=== PATIENT | female | born 1980 | race Two or more races ===

== ENCOUNTER 2016-10-13 22:20 | Inpatient (IN) | payer OTHER ==
[~2016-10-13] VITALS: Ht 167.6 cm; Wt 80.7 kg
[2016-10-13] MEDS ORDERED: OXYTOCIN in NORMAL SALINE PREMIX 30 UNIT/500 ML BAG. IV ONE (22:24)
[2016-10-13] MEDS ORDERED: IV RINGERS,LACTATED 1000ML 1,000 ML IV SCH (22:43)
[2016-10-13] MEDS ORDERED: 0.9 % SODIUM CHLORIDE 10 ML DISP.SYRIN. IV PRN ×2 (22:45→23:15)
[2016-10-13] MEDS ORDERED: TERBUTALINE 1 MG/ML VIAL. SQ PRN (22:45)
[2016-10-13] MEDS ORDERED: LIDOCAINE 1% PF 30 ML VIAL. INJ PRN (22:45)
[2016-10-13] MEDS ORDERED: OXYTOCIN 30 UNIT/500 ML PREMIX 500 ML IV PRN ×2 (22:45→23:15)
--- NOTE | 2016-10-13 23:05 | PDOC1 ---
OB - History Hx of Present Care: Good Care Ultrasounds: Normal mid trimester US Obstetrical Complications: None Medical Complications: None Past Family/Social History * Past Medical, Surgical, Family and Obstetric Histories reviewed from chart. Blood Type: Unknown Rubella: Unknown RPR/VDRL: Unknown GBS Status: Unknown HBsAG: Unknown OB - Chief Complaint & HPI Date of Admission: Date of Admission: Oct 13, 2016 at 22:20 Chief Complaint/History : 2 Para: 1 EGA: 38 Reason for admission: active labor Admission Nurse Assessment Rev: Yes Problems: OB - Admission Exam Physical Exam HEENT: Normal Heart: Regular Rate Lungs: Clear Abdomen: Gravid, Non tender, Soft Extremities: Edema Reflexes: Normal Cervical Dilatation: 10cm Effacement: 100% Station: Other (precipitous delivery in elevator) Membranes: Ruptured Amniotic Fluid: Clear Heart Rate: Normal Accelerations: Accelerations Present Decelerations: No decelerations Contractions on Admission: < 5 Minutes Apart Intensity: Firm Text A: 38 wks IUP Active labor: Delivered precipitously in elevator P: Admit for completion of 3rd stage of labor and post care. PAMELA ROPER Jr, MD Oct 13, 2016 23:05
--- NOTE | 2016-10-13 23:07 | PDOC ---
VAGINAL DELIVERY DATE DATE: 10/13/16 TIME: 23:04 : 2 Para: 2 EGA: 38 VAGINAL DELIVERY: VTX VACCUM ASSISTED: No PLACENTA: Spontaneous 9/9 SEX: Female WEIGHT Weight [3310 gm ] Nuchal Cord: No Amniotic Fluid: Clear PAIN: Natural EPISIOTOMY: No EXTENSION: Yes (Left labial; hemostatic) REPAIRED WITH none EBL 300 ml COMPLICATIONS none CONDITION pt. stable Signs of Intrauterine Infectio: None Shoulder Dystocia: No DIAGNOSIS precipitous delivery. completion of 3rd stage of labor. Problems: PAMELA ROPER Jr, MD Oct 13, 2016 23:07
[2016-10-13] MEDS: FENTANYL PF 100 MCG/2 ML VIAL. IV PRN ×2 (23:11→23:39)
[2016-10-13] MEDS ORDERED: BENZOCAINE 20% TOPICAL AEROSOL SPRAY 57GM CAN. TP PRN (23:15)
[2016-10-13] MEDS ORDERED: PHENYLEPH/MINERAL OIL/PETROLAT RECTAL OINTMENT 28GM TUBE. RC PRN (23:15)
[2016-10-13] MEDS ORDERED: OXYCODONE/APAP 5/325 TABLET. PO PRN (23:15)
[2016-10-13] MEDS ORDERED: IBUPROFEN 800 MG TABLET. PO PRN (23:15)
[2016-10-13] MEDS ORDERED: ACETAMINOPHEN 325 MG TABLET. PO PRN (23:15)
[2016-10-13] MEDS ORDERED: DOCUSATE SODIUM 100 MG CAPSULE PO PRN (23:15)
[2016-10-13] MEDS ORDERED: ZOLPIDEM 5 MG TABLET. PO PRN (23:15)
[2016-10-13] MEDS ORDERED: MAG HYDROX/AL HYDROX/SIMETH 30 ML ORAL.SUSP PO PRN (23:15)
[2016-10-13] MEDS ORDERED: DIPHENHYDRAMINE HCL 25 MG CAPSULE PO PRN (23:15)
[2016-10-13] MEDS ORDERED: MAGNESIUM HYDROXIDE 2,400 MG/30 ML ORAL.SUSP. PO PRN (23:15)
[2016-10-13] MEDS ORDERED: HYDROCORTISONE 1% TOPICAL OINTMENT 30GM TUBE. TP PRN (23:15)
[2016-10-13] MEDS ORDERED: MMR per PROTOCOL. MC PRN (23:15)
[2016-10-13] MEDS ORDERED: SIMETHICONE 80 MG TAB.CHEW PO PRN (23:15)
[2016-10-13 23:33] VITALS: BP 139/79
[2016-10-13 23:39] LABS: HEMATOCRIT 35.7 % (36.0-47.0); HEMOGLOBIN 11.6 g/dL (12.0-15.5); RED BLOOD COUNT 3.93 x10^6/uL (3.50-5.40); RED CELL DISTRIBUTION WIDTH 12.9 % (11.5-14.5); WHITE BLOOD COUNT 20.1 x10^3/uL (4.0-11.0)
[2016-10-14] MEDS ORDERED: ONDANSETRON PF 4 MG/2 ML VIAL. IV ONE (01:30)
[2016-10-14 02:34] VITALS: BP 102/62
[2016-10-14 03:01] VITALS: BP 88/51
[2016-10-14 05:44] LABS: BASO % 0 % (0-3); EOS % 0 % (0-3); HEMATOCRIT 35.3 % (36.0-47.0); HEMOGLOBIN 11.5 g/dL (12.0-15.5); LYMPH # 1.8 x10^3/uL (1.0-4.8); LYMPH % 8 % (24-48); MEAN CORPUSCULAR HEMOGLOBIN 30 pg (25-35); MEAN CORPUSCULAR HGB CONC 33 g/dL (31-37); MEAN CORPUSCULAR VOLUME 91 fL (79-100); MONO % 5 % (0-9); NEUT % 87 % (31-73); PLATELET COUNT 259 x10^3/uL (140-400); RED BLOOD COUNT 3.87 x10^6/uL (3.50-5.40); RED CELL DISTRIBUTION WIDTH 12.9 % (11.5-14.5); WHITE BLOOD COUNT 22.1 x10^3/uL (4.0-11.0)
[2016-10-14 06:00] VITALS: BP 92/55
[2016-10-14 07:28] LABS: PLT ESTIMATE ADEQUATE (ADEQUATE)
[2016-10-14 07:30] LABS: TOXIC GRANULATION PRESENT
[2016-10-14] MEDS ORDERED: FERROUS SULFATE 325 MG TABLET PO SCH (08:00)
[2016-10-14 10:09] VITALS: BP 114/82
--- NOTE | 2016-10-14 10:23 | PDOC ---
Provider Note Provider Note Doing well VSS Uterus NTTP FU in AM JANA CURRY MD Oct 14, 2016 10:23
--- NOTE | 2016-10-14 12:48 | PDOC ---
OB Progress Note Date of Service 10/14/16 Time of Evaluation 1245 Notes PT. feeling well. Lochia minimal. Pain controlled. Breast feeding Lab Laboratory Tests Test 10/13/16 23:10 10/14/16 05:15 White Blood Count 20.1x10^3/uL (4.0-11.0) 22.1x10^3/uL (4.0-11.0) Red Blood Count 3.93x10^6/uL (3.50-5.40) 3.87x10^6/uL (3.50-5.40) Hemoglobin 11.6g/dL (12.0-15.5) 11.5g/dL (12.0-15.5) Hematocrit 35.7% (36.0-47.0) 35.3% (36.0-47.0) Mean Corpuscular Volume 91fL (79-100) 91fL (79-100) Mean Corpuscular Hemoglobin 30pg (25-35) 30pg (25-35) Mean Corpuscular Hemoglobin Concent 33g/dL (31-37) 33g/dL (31-37) Red Cell Distribution Width 12.9% (11.5-14.5) 12.9% (11.5-14.5) Platelet Count 245x10^3/uL (140-400) 259x10^3/uL (140-400) Neutrophils (%) (Auto) 87% (31-73) Lymphocytes (%) (Auto) 8% (24-48) Monocytes (%) (Auto) 5% (0-9) Eosinophils (%) (Auto) 0% (0-3) Basophils (%) (Auto) 0% (0-3) Neutrophils # (Auto) 19.1x10^3uL (1.8-7.7) Lymphocytes # (Auto) 1.8x10^3/uL (1.0-4.8) Monocytes # (Auto) 1.1x10^3/uL (0.0-1.1) Eosinophils # (Auto) 0.1x10^3/uL (0.0-0.7) Basophils # (Auto) 0.0x10^3/uL (0.0-0.2) Segmented Neutrophils % 78% (35-66) Band Neutrophils % 10% (0-9) Lymphocytes % 10% (24-48) Monocytes % 2% (0-10) Toxic Granulation Present Platelet Estimate Adequate (ADEQUATE) Large Platelets Present Laboratory Tests Test 10/13/16 23:10 10/14/16 05:15 White Blood Count 20.1x10^3/uL (4.0-11.0) 22.1x10^3/uL (4.0-11.0) Red Blood Count 3.93x10^6/uL (3.50-5.40) 3.87x10^6/uL (3.50-5.40) Hemoglobin 11.6g/dL (12.0-15.5) 11.5g/dL (12.0-15.5) Hematocrit 35.7% (36.0-47.0) 35.3% (36.0-47.0) Mean Corpuscular Volume 91fL (79-100) 91fL (79-100) Mean Corpuscular Hemoglobin 30pg (25-35) 30pg (25-35) Mean Corpuscular Hemoglobin Concent 33g/dL (31-37) 33g/dL (31-37) Red Cell Distribution Width 12.9% (11.5-14.5) 12.9% (11.5-14.5) Platelet Count 245x10^3/uL (140-400) 259x10^3/uL (140-400) Neutrophils (%) (Auto) 87% (31-73) Lymphocytes (%) (Auto) 8% (24-48) Monocytes (%) (Auto) 5% (0-9) Eosinophils (%) (Auto) 0% (0-3) Basophils (%) (Auto) 0% (0-3) Neutrophils # (Auto) 19.1x10^3uL (1.8-7.7) Lymphocytes # (Auto) 1.8x10^3/uL (1.0-4.8) Monocytes # (Auto) 1.1x10^3/uL (0.0-1.1) Eosinophils # (Auto) 0.1x10^3/uL (0.0-0.7) Basophils # (Auto) 0.0x10^3/uL (0.0-0.2) Segmented Neutrophils % 78% (35-66) Band Neutrophils % 10% (0-9) Lymphocytes % 10% (24-48) Monocytes % 2% (0-10) Toxic Granulation Present Platelet Estimate Adequate (ADEQUATE) Large Platelets Present Medications Current Medications Sodium Chloride 3 ml 3 ml QSHIFT PRN IV AFTER MEDS AND BLOOD DRAWS; Start 10/13 at 22:45 Lactated Ringer's (Iv Lactated Ringers) 1,000 ml @ 125 mls/hr Q8H IV ; Start at 22:43 Fentanyl Citrate (Fentanyl 2ml Vial) 100 mcg PRN Q20MIN PRN IV Labor pain Last administered on 10/13/16t 23:39; Start 10/13/16 at 22:45 Terbutaline Sulfate (Brethine) 0.25 mg 1X PRN PRN SQ SEE COMMENTS; Start at 22:45; Stop 10/14/16 at 22:44 Lidocaine HCl 30 ml 30 ml 1X PRN PRN INJ SEE COMMENTS; Start 10/13/16 at 22:45 ; Stop 10/15/16 at 22:44 Oxytocin/Sodium Chloride (Oxytocin Premix Infusion) 500 ml @ 0 mls/hr CONT PRN PRN IV Post delivery bleeding Last administered on 10/13/16t 22:51; Start at 22:45 Ibuprofen (Motrin) 800 mg PRN Q6HRS PRN PO PAIN; Start 10/13/16 at 22:45 Sodium Chloride 10 ml 10 ml QSHIFT PRN IV AFTER MEDS AND BLOOD DRAWS; Start at 23:15 Oxytocin/Sodium Chloride (Oxytocin Premix Infusion) 500 ml @ 62.5 mls/hr CONT PRN IV SEE I/O RECORD; Start 10/13/16 at 23:15; Stop 10/14/16 at 07:14; Status DC Acetaminophen (Tylenol) 650 mg PRN Q6HRS PRN PO MILD PAIN / TEMP; Start at 23:15 Ibuprofen (Motrin) 800 mg PRN Q8HRS PRN PO INFLAMMATION/PAIN PREVENTION; Start 10/13/16 at 23:15 Docusate Sodium (Colace) 100 mg PRN BID PRN PO CONSTIPATION; Start 10/13/16 at 23:15 Magnesium Hydroxide (Milk Of Magnesia) 2,400 mg PRN DAILY PRN PO CONSTIPATION; Start 10/13/16 at 23:15 Al Hydroxide/Mg Hydroxide (Mylanta Plus Xs) 30 ml PRN Q4HRS PRN PO HEARTBURN / GAS; Start 10/13/16 at 23:15 Simethicone (Gas-X) 80 mg PRN AFTMEALHC PRN PO GAS / BLOATING; Start 10/13/16 at 23:15 Diphenhydramine HCl (Benadryl) 25 mg PRN Q6HRS PRN PO ITCHING; Start 10/13/16 at 23:15 Benzocaine (Americaine) 1 spray PRN QID PRN TP TOPICAL PAIN Last administered on 10/14/16 01:27; Start 10/13/16 at 23:15 Phenyleph/Shark Oil/Min Oil/Petrol (Preparation H) 1 eugenia PRN QID PRN RC RECTAL PAIN; Start 10/13/16 at 23:15 Hydrocortisone (Cortaid) 1 eugenia PRN QID PRN TP PERINEAL PAIN; Start 10/13/16 at 23:15 Ferrous Sulfate (Feosol) 325 mg BIDWMEALS PO ; Start 10/14/16 at 08:00 Zolpidem Tartrate (Ambien) 5 mg PRN QHS PRN PO INSOMNIA, MAY REPEAT X1; Start 10/13/16 at 23:15 Info (Do NOT chart on this placeholder) 1 ea 1X PRN PRN MC SEE COMMENTS; Start 10/13/16 at 23:15 Info (Do NOT chart on this placeholder) 1 ea 1X PRN PRN MC SEE COMMENTS; Start 10/13/16 at 23:15 Oxycodone/ Acetaminophen (Percocet 5/325) 2 tab PRN Q4HRS PRN PO MODERATE PAIN , SEVERE PAIN; Start 10/13/16 at 23:15 Ondansetron HCl (Zofran) 4 mg 1X ONCE IV Last administered on 10/14/16 01:26 ; Start 10/14/16 at 01:30; Stop 10/14/16 at 01:31; Status DC Exam Abd: soft, non tender, fundus firm Assessment PPD#1 s/p Plan of Care: Continue current Tx, Mgmt PAMELA ROPER Jr, MD Oct 14, 2016 12:48
[2016-10-14] MEDS: IBUPROFEN 800 MG TABLET. PO PRN (13:42)
[2016-10-14] MEDS ORDERED: ONDANSETRON ODT 4 MG TAB.RAPDIS PO PRN (17:00)
[2016-10-14] MEDS ORDERED: PROMETHAZINE 12.5 MG TABLET. PO PRN (17:15)
[2016-10-14 18:06] VITALS: BP 102/57
[2016-10-14 22:00] VITALS: BP 100/56
[2016-10-15] MEDS: IBUPROFEN 800 MG TABLET. PO PRN ×2 (03:38→13:58)
[2016-10-15 06:00] VITALS: BP 88/49
[2016-10-15 13:55] VITALS: BP 112/62
--- NOTE | 2016-10-15 17:35 | PDOC ---
OB Progress Note Date of Service 10/15/16 Time of Evaluation 1735 Notes PT. feeling well. No complaints. Lab Laboratory Tests Test 10/13/16 23:10 10/14/16 05:15 White Blood Count 20.1x10^3/uL (4.0-11.0) 22.1x10^3/uL (4.0-11.0) Red Blood Count 3.93x10^6/uL (3.50-5.40) 3.87x10^6/uL (3.50-5.40) Hemoglobin 11.6g/dL (12.0-15.5) 11.5g/dL (12.0-15.5) Hematocrit 35.7% (36.0-47.0) 35.3% (36.0-47.0) Mean Corpuscular Volume 91fL (79-100) 91fL (79-100) Mean Corpuscular Hemoglobin 30pg (25-35) 30pg (25-35) Mean Corpuscular Hemoglobin Concent 33g/dL (31-37) 33g/dL (31-37) Red Cell Distribution Width 12.9% (11.5-14.5) 12.9% (11.5-14.5) Platelet Count 245x10^3/uL (140-400) 259x10^3/uL (140-400) RPR Titer Additional Testing Non reactive (Non Reactive) Hepatitis B Surface Antigen Negative (Negative) Rubella IgG Antibody 2.23index (Immune >0.99) Neutrophils (%) (Auto) 87% (31-73) Lymphocytes (%) (Auto) 8% (24-48) Monocytes (%) (Auto) 5% (0-9) Eosinophils (%) (Auto) 0% (0-3) Basophils (%) (Auto) 0% (0-3) Neutrophils # (Auto) 19.1x10^3uL (1.8-7.7) Lymphocytes # (Auto) 1.8x10^3/uL (1.0-4.8) Monocytes # (Auto) 1.1x10^3/uL (0.0-1.1) Eosinophils # (Auto) 0.1x10^3/uL (0.0-0.7) Basophils # (Auto) 0.0x10^3/uL (0.0-0.2) Segmented Neutrophils % 78% (35-66) Band Neutrophils % 10% (0-9) Lymphocytes % 10% (24-48) Monocytes % 2% (0-10) Toxic Granulation Present Platelet Estimate Adequate (ADEQUATE) Large Platelets Present Medications Current Medications Sodium Chloride 3 ml 3 ml QSHIFT PRN IV AFTER MEDS AND BLOOD DRAWS; Start 10/13 at 22:45 Lactated Ringer's (Iv Lactated Ringers) 1,000 ml @ 125 mls/hr Q8H IV ; Start at 22:43 Fentanyl Citrate (Fentanyl 2ml Vial) 100 mcg PRN Q20MIN PRN IV Labor pain Last administered on 10/13/16 23:39; Start 10/13/16 at 22:45 Terbutaline Sulfate (Brethine) 0.25 mg 1X PRN PRN SQ SEE COMMENTS; Start at 22:45; Stop 10/14/16 at 22:44; Status DC Lidocaine HCl 30 ml 30 ml 1X PRN PRN INJ SEE COMMENTS; Start 10/13/16 at 22:45 ; Stop 10/15/16 at 22:44 Oxytocin/Sodium Chloride (Oxytocin Premix Infusion) 500 ml @ 0 mls/hr CONT PRN PRN IV Post delivery bleeding Last administered on 10/13/16 22:51; Start at 22:45 Ibuprofen (Motrin) 800 mg PRN Q6HRS PRN PO PAIN Last administered on 10/15/16 13:58; Start 10/13/16 at 22:45 Sodium Chloride 10 ml 10 ml QSHIFT PRN IV AFTER MEDS AND BLOOD DRAWS; Start at 23:15 Oxytocin/Sodium Chloride (Oxytocin Premix Infusion) 500 ml @ 62.5 mls/hr CONT PRN IV SEE I/O RECORD; Start 10/13/16 at 23:15; Stop 10/14/16 at 07:14; Status DC Acetaminophen (Tylenol) 650 mg PRN Q6HRS PRN PO MILD PAIN / TEMP; Start at 23:15 Ibuprofen (Motrin) 800 mg PRN Q8HRS PRN PO INFLAMMATION/PAIN PREVENTION; Start 10/13/16 at 23:15 Docusate Sodium (Colace) 100 mg PRN BID PRN PO CONSTIPATION; Start 10/13/16 at 23:15 Magnesium Hydroxide (Milk Of Magnesia) 2,400 mg PRN DAILY PRN PO CONSTIPATION; Start 10/13/16 at 23:15 Al Hydroxide/Mg Hydroxide (Mylanta Plus Xs) 30 ml PRN Q4HRS PRN PO HEARTBURN / GAS; Start 10/13/16 at 23:15 Simethicone (Gas-X) 80 mg PRN AFTMEALHC PRN PO GAS / BLOATING; Start 10/13/16 at 23:15 Diphenhydramine HCl (Benadryl) 25 mg PRN Q6HRS PRN PO ITCHING; Start 10/13/16 at 23:15 Benzocaine (Americaine) 1 spray PRN QID PRN TP TOPICAL PAIN Last administered on 10/14/16 01:27; Start 10/13/16 at 23:15 Phenyleph/Shark Oil/Min Oil/Petrol (Preparation H) 1 eugenia PRN QID PRN RC RECTAL PAIN; Start 10/13/16 at 23:15 Hydrocortisone (Cortaid) 1 eugenia PRN QID PRN TP PERINEAL PAIN; Start 10/13/16 at 23:15 Ferrous Sulfate (Feosol) 325 mg BIDWMEALS PO ; Start 10/14/16 at 08:00 Zolpidem Tartrate (Ambien) 5 mg PRN QHS PRN PO INSOMNIA, MAY REPEAT X1; Start 10/13/16 at 23:15 Info (Do NOT chart on this placeholder) 1 ea 1X PRN PRN MC SEE COMMENTS; Start 10/13/16 at 23:15 Info (Do NOT chart on this placeholder) 1 ea 1X PRN PRN MC SEE COMMENTS; Start 10/13/16 at 23:15 Oxycodone/ Acetaminophen (Percocet 5/325) 2 tab PRN Q4HRS PRN PO MODERATE PAIN , SEVERE PAIN Last administered on 10/14/16 15:14; Start 10/13/16 at 23:15 Ondansetron HCl (Zofran) 4 mg 1X ONCE IV Last administered on 10/14/16 01:26 ; Start 10/14/16 at 01:30; Stop 10/14/16 at 01:31; Status DC Ondansetron HCl (Zofran Odt) 4 mg PRN Q8HRS PRN PO NAUSEA/VOMITING; Start 10/14 at 17:00 Promethazine HCl (Phenergan) 25 mg PRN Q6HRS PRN PO NAUSEA/VOMITING Last administered on 10/14/16t 17:38; Start 10/14/16 at 17:15 Exam Abd: soft, non tender, fundus firm Assessment PPD#2 s/p Plan of Care: See new orders (D/c home.) PAMELA ROPER Jr, MD Oct 15, 2016 17:35
--- NOTE | 2016-10-15 17:36 | DISCH ---
DISCHARGE INSTRUCTIONS Condition on Discharge Condition on Discharge: Stable Activity After Discharge Activity Instructions for Disc: Activity as tolerated Lifting Instructions after Dis: No heavy lifting Driving Instructions after Dis: Do not drive today Diet after Discharge Diet after Discharge: Regular Contacting the DRFlori after DC Call your doctor for: Concerns you may have Follow-Up Follow up with: Dr. Brito in 6 weeks. PAMELA BRITO Jr, MD Oct 15, 2016 17:36
== END 2016-10-15 18:25 | disposition home or self-care (01) | DRG 775 ==
LOC: 3 SO LND 22:20 → OBSVTOIN 22:20 → 3 SO LND 22:20
PROVIDERS: ADMIT Obstetrics & Gynecology; ATTEND Obstetrics & Gynecology
PROC: 10E0XZZ Delivery of Products of Conception, External Approach (ICD-10-PCS; principal; 2016-10-13)
DX: O62.3 Precipitate labor (principal); Z3A.38 38 weeks gestation of pregnancy; Z37.0 Single live birth
CPT/HCPCS: 36415; 85007; 85027; 86593; 86762; 86900; 86901; 87340; 87341; J2405; J2590; J3010; Q0169